=== PATIENT | female | born 1970 | race Caucasian/White ===

== ENCOUNTER 2016-07-12 18:25 | Emergency (ER) | payer BC ==
[2016-07-12 18:55] VITALS: O2SAT 100
[2016-07-12] MEDS ORDERED: Sodium Chloride 0.9% 1,000 ML IV ONE (20:00)
[2016-07-12 20:29] LABS: RBC URINE < 1 /hpf (0-3); URINE BACTERIA OCC (<OCC); URINE BILIRUBIN NEGATIVE (NEGATIVE); URINE BLOOD 2+ (NEGATIVE); URINE COLOR Straw (YELLOW); URINE GLUCOSE (UA) NORMAL (Normal); URINE KETONE NEGATIVE (NEGATIVE); URINE LEUKOCYTE ESTERASE NEG Leu/uL (Negative); URINE PROTEIN NEGATIVE (NEGATIVE); URINE UROBILINOGEN NORMAL mg/dL (0.2-1.0); WBC URINE 1 /hpf (0-5)
[2016-07-12 21:01] LABS: BASO % 0.3 % (0.0-2.0); EOS % 0.6 % (0.0-4.0); HEMATOCRIT 37.1 % (34.0-47.0); LYMPH # 1.6 K/uL (1.0-4.3); LYMPH % 20.6 % (20.0-40.0); MEAN CELL VOLUME 85.9 fL (81.0-99.0); MEAN CORPUSCULAR HEMOGLOBIN 28.7 pg (27.0-31.0); MEAN CORPUSCULAR HGB CONC 33.4 g/dL (33.0-37.0); MEAN PLATELET VOLUME 8.3 fL (7.2-11.7); MONO # 0.7 K/uL (0.0-0.8); MONO % 9.1 % (0.0-10.0); RED CELL DISTRIBUTION WIDTH 13.6 % (11.5-14.5); WHITE BLOOD COUNT 7.6 K/uL (4.8-10.8)
[2016-07-12 21:09] LABS: CHLORIDE 101 mmol/L (98-107); POTASSIUM 3.8 mmol/L (3.6-5.2); SODIUM 134 mmol/L (132-148)
[2016-07-12 21:12] LABS: ALB/GLOB RATIO 1.1 (1.0-2.1); ALKALINE PHOSPHATASE 57 U/L (38-126); ALT/SGPT 20 U/L (9-52); AST/SGOT 22 U/L (14-36); BILIRUBIN,TOTAL 0.3 mg/dL (0.2-1.3); BLOOD UREA NITROGEN 9 mg/dL (7-17); CARBON DIOXIDE 22 mmol/L (22-30); GFR AFRICAN-AMERICAN > 60; GLUCOSE,RANDOM 94 mg/dL (65-105); TOTAL PROTEIN 7.6 g/dL (6.3-8.3)
[2016-07-12 21:13] LABS: CALCIUM 9.1 mg/dl (8.6-10.4)
--- NOTE | 2016-07-12 21:26 | C.PDOC ---
Time Seen by Provider: 07/12/16 19:52 Chief Complaint (Nursing): Abdominal Pain History Per: Patient, Family Onset/Duration Of Symptoms: Days (1), Waxing/Waning Current Symptoms Are (Timing): Still Present Severity: Moderate Location Of Pain/Discomfort: Suprapubic Radiation Of Pain To:: None Quality Of Discomfort: Cramping Exacerbating Factors: None Alleviating Factors: None Additional History Per: Prior Records Abnormal Vaginal Bleeding: No : 1 Para: 0 Past Medical History Reviewed: Historical Data, Nursing Documentation, Vital Signs Vital Signs: Last Vital Signs Temp 98.8 F 07/12/16 18:52 Pulse 95 H 07/12/16 18:52 Resp 18 07/12/16 18:52 BP 151/91 H 07/12/16 18:52 Pulse Ox 100 07/12/16 23:47 - Medical History PMH: No Chronic Diseases Other PMH: Fibroids Surgical History: No Surg Hx Family History: States: Unknown Family Hx - Social History Hx Tobacco Use: No Hx Alcohol Use: No Hx Substance Use: No Review Of Systems Except As Marked, All Systems Reviewed And Found Negative. Constitutional: Negative for: Fever, Weakness Cardiovascular: Negative for: Chest Pain Respiratory: Negative for: Shortness of Breath Gastrointestinal: Negative for: Vomiting, Diarrhea Genitourinary: Positive for: Pelvic Pain. Negative for: Dysuria, Vaginal Discharge, Vaginal Bleeding Musculoskeletal: Negative for: Neck Pain, Back Pain Skin: Negative for: Rash Neurological: Negative for: Weakness, Numbness, Seizures, Altered Mental Status Physical Exam - Physical Exam Appears: Non-toxic, No Acute Distress Skin: Normal Color, Warm, Dry, No Rash Head: Atraumatic, Normacephalic Eye(s): bilateral: PERRL, EOMI Neck: Normal ROM, Supple Cardiovascular: Rhythm Regular Respiratory: Normal Breath Sounds, No Accessory Muscle Use Gastrointestinal/Abdominal: Soft, Tenderness (suprapubic), No Guarding, No Rebound Back: No CVA Tenderness Extremity: Normal ROM, No Pedal Edema, No Calf Tenderness Neurological/Psych: Oriented x3, Normal Motor, Normal Sensation ED Course And Treatment - Laboratory Results Result Diagrams: 07/12/16 20:53 07/12/16 20:53 Urine POC: Positive O2 Sat by Pulse Oximetry: 100 Pulse Ox Interpretation: Normal - CT Scan/US Pelvic US Other Rad Studies (CT/US): Read By Radiologist, Radiology Report Reviewed CT/US Interpretation: Probable IUP. Probable fibroid uterus. Disposition Discussed With : Chance Schultz ([employer]) Comment: She states pt can be discharged home and instructed to repeat beta hcg and pelvic US in 2 days. Counseled Patient/Family Regarding: Studies Performed, Diagnosis, Need For Followup, Rx Given - Disposition Disposition: HOME/ ROUTINE Disposition Time: 23:46 Condition: STABLE Additional Instructions: Drink plenty of fluids. Follow up with your [employer] doctor or return to the ER in 2 days for repeat ultrasound and hormone level. Return to the ER immediately if you develop bleeding, dizziness, severe pain, worsening of symptoms or if you have any other concerns. Prescriptions: Acetaminophen [Tylenol Extra Strength] 2 tab PO Q6 PRN #30 tablet PRN Reason: Pain, Moderate (4-7) Instructions: Abdominal Pain in (ED) - Clinical Impression Clinical Impression: Lower abdominal pain, test positive
[2016-07-13 00:02] VITALS: BP 130/80; PULSE 80; RESP 14; TEMP 98.5
--- NOTE | 2016-07-13 10:41 | US ---
PROCEDURE: First trimester ultrasound HISTORY: Pelvic pain, ectopic gestation suspected. Beta HCG results: 88514.00 COMPARISON: None TECHNIQUE: Transabdominal only. Real-time technique with 2D, duplex and color Doppler FINDINGS: Uterus measures 12.1 x 10.7 x 13.3 cm. Multiple (3) uterine fibroids: 1. Fundal fibroid 6.6 x 7.7 cm. 2. Anterior fibroid to the left of the midline 6.5 x 7.8 cm. 3. Posterior fibroid 7.6 x 8.4 cm. New Gestational sac measurements 0.85 cm out of range, below threshold for calculation of gestational age. LMP 05/18/2016 corresponds to gestational age 7 weeks 6 days and in the [facility] 02/22/2017. Right ovary 1.9 x 3.1 cm. Left ovary not visualize. IMPRESSION: Small gestational sac 0.85 cm without identifiable yolk sac or pole presumed early intrauterine gestation. No visualized ectopic gestation. Limitations of the current examination: Nonvisualization left ovary. Concordant results (preliminary interpretation) provided by [facility]. Procedure Completed: 22:49 Preliminary ([facility]) Report: Dictated and Authenticated: 23:21. Final Interpretation: 10:37. July 13, 2016.
== END 2016-07-13 00:03 | disposition home or self-care (01) ==
LOC: C.ER 18:25
DX: Z32.01 Encounter for pregnancy test, result positive (principal); R10.30 Lower abdominal pain, unspecified